=== PATIENT | male | born 1985 | race African-American/Black ===

== ENCOUNTER 2018-07-06 15:22 | Emergency (ER) | payer OTHER ==
[~2018-07-06] VITALS: Ht 188 cm; Wt 83.9 kg
[~2018-07-06 15:22] MED LIST: DOXYCYCLINE 10100 M1 PO; IBUPROFEN 600600 M1 PO; IBUPROFEN 800800 MG PO; NOHOMEMEDICATIONS; NORCO 5-325 TA1 EACH PO
[2018-07-06 15:23] VITALS: BP 143/89
[2018-07-06] MEDS ORDERED: HYDROCODONE-AP1 EAC6 PO (16:18)
[2018-07-06] MEDS ORDERED: IBUPROFEN 600600 M1 PO (16:18)
== END 2018-07-06 16:20 | disposition home or self-care (01) ==
LOC: ER 15:22
DX: S62.511A Displaced fracture of proximal phalanx of right thumb, initial encounter for closed fracture (principal); F17.210 Nicotine dependence, cigarettes, uncomplicated; W18.39XA Other fall on same level, initial encounter; Y92.89 Other specified places as the place of occurrence of the external cause; Y93.89 Activity, other specified; Y99.8 Other external cause status

== ENCOUNTER 2018-07-11 15:39 | Emergency (ER) | payer OTHER ==
[~2018-07-11] VITALS: Ht 188 cm; Wt 81.7 kg
[2018-07-11 15:39] VITALS: BP 118/84
[~2018-07-11 15:39] MED LIST changes: +HYDROCODONE-AP1 EAC6 PO
[2018-07-11] MEDS ORDERED: IBUPROFEN 600600 M1 PO (16:18)
== END 2018-07-11 16:29 | disposition home or self-care (01) ==
LOC: ER 15:39
DX: S62.501D Fracture of unspecified phalanx of right thumb, subsequent encounter for fracture with routine healing (principal); X58.XXXD Exposure to other specified factors, subsequent encounter; F17.210 Nicotine dependence, cigarettes, uncomplicated

== ENCOUNTER 2018-07-23 16:53 | Emergency (ER) | payer OTHER ==
[~2018-07-23] VITALS: Ht 188 cm; Wt 81.7 kg
[2018-07-23 16:55] VITALS: BP 134/81
[2018-07-23] MEDS ORDERED: NAPROSYN500 MG PO (17:12)
== END 2018-07-23 17:21 | disposition home or self-care (01) ==
LOC: ER 16:53
DX: S62.511 Displaced fracture of proximal phalanx of right thumb (principal); X58.XXXD Exposure to other specified factors, subsequent encounter